=== PATIENT | male | born 1950 | race Caucasian/White ===

== ENCOUNTER 2018-11-29 14:01 | Outpatient (CLI) | payer OTHER ==
[2018-11-29 15:08] LABS: BASOPHILS # (AUTO) 0.04 x10^3/uL (0-0.1); BASOPHILS % (AUTO) 0 % (0-1); EOSINOPHILS # (AUTO) 0.14 x10^3/uL (0-0.4); EOSINOPHILS % (AUTO) 1 % (1-7); LYMPHOCYTES # (AUTO) 2.02 x10^3/uL (1-3.4); LYMPHOCYTES % (AUTO) 21 % (22-44); MD NO; MEAN CORPUSCULAR HEMOGLOBIN 28.9 pg (27.5-34.5); MEAN CORPUSCULAR HGB CONC 32.9 g/dL (33.2-36.2); MEAN CORPUSCULAR VOLUME 87.9 fL (81-97); MEAN PLATELET VOLUME 7.7 fL (7.4-10.4); MONOCYTES # (AUTO) 0.63 x10^3/uL (0.2-0.8); MONOCYTES % (AUTO) 6 % (2-9); NEUTROPHILS # (AUTO) 7.01 x10^3/uL (1.8-6.8); NEUTROPHILS % (AUTO) 71 % (42-75); PLATELET COUNT 302 x10^3/uL (130-400); RED BLOOD COUNT 5.07 x10^6/uL (4.38-5.82); RED CELL DISTRIBUTION WIDTH 14.3 % (9.4-14.8)
[2018-11-29 15:14] LABS: MICROSCOPIC NOT IND
[2018-11-29 15:20] LABS: ALANINE AMINOTRANSFERASE 30 U/L (12-78); ALBUMIN 3.7 g/dL (3.4-5.0); ANION GAP 4 mmol/L (5-15); CALCIUM 8.6 mg/dL (8.5-10.1); CHLORIDE 109 mmol/L (98-107); CREATININE 1.06 mg/dL (0.7-1.3)
[2018-11-29 15:22] LABS: ALKALINE PHOSPHATASE 44 U/L (45-117); BILIRUBIN,TOTAL 0.2 mg/dL (0.2-1.0); TOTAL PROTEIN 7.2 g/dL (6.4-8.2)
[2018-12-02] MEDS ORDERED: ASPI-496 PO (09:02)
[2018-12-02] MEDS ORDERED: Cholesterol PO (09:02)
[2018-12-02] MEDS ORDERED: [UNRECOGNIZED DRUG - OTHER] (09:02)
[2018-12-02] MEDS ORDERED: LOPE2CAP94 PO (09:02)
[2018-12-02] MEDS ORDERED: PROSTATE MED PO (09:02)
== END 2018-11-29 23:59 | disposition home or self-care (01) ==
LOC: STAR 14:01
PROVIDERS: ATTEND Urology
DX: Z01.818 Encounter for other preprocedural examination (principal); D41.02 Neoplasm of uncertain behavior of left kidney
CPT/HCPCS: 36415; 80053; 81003; 85025; 87086; 93005

== ENCOUNTER 2018-12-06 11:09 | Inpatient (IN) | payer OTHER ==
[~2018-12-06] VITALS: Ht 180.3 cm; Wt 86.2 kg
[~2018-12-06 11:09] MED LIST: ASPI-496 PO; Cholesterol PO; LOPE2CAP94 PO; PROSTATE MED PO; [UNRECOGNIZED DRUG - OTHER]
[2018-12-06 12:19] VITALS: BP 165/89
[2018-12-06] MEDS ORDERED: LACTATED RINGERS 1,000 ML IV SCH (12:22)
[2018-12-06] MEDS ORDERED: FINA5TAB4 PO (12:26)
[2018-12-06] MEDS ORDERED: CYAN1TAB29 PO (12:26)
[2018-12-06] MEDS ORDERED: ATOR10TA9 PO (12:26)
[2018-12-06] MEDS ORDERED: ALEN35TA6 PO (12:26)
[2018-12-06] MEDS ORDERED: OMEP-110 PO (12:26)
[2018-12-06] MEDS ORDERED: BUPIVACAINE/PF 0.25% ONE (13:01)
[2018-12-06] MEDS ORDERED: THROMBIN 5,000 UNIT VIAL TP ONE (13:01)
[2018-12-06] MEDS ORDERED: FUROSEMIDE 20 MG/2 ML ONE (13:01)
[2018-12-06] MEDS ORDERED: EPINEPHRINE 1 MG/ML, 1ML ONE (13:02)
[2018-12-06] MEDS ORDERED: MANNITOL PMX 20% 0 ML ONE (13:02)
[2018-12-06] MEDS ORDERED: MANNITOL PMX 20% 500 ML ONE (13:10)
[2018-12-06] MEDS ORDERED: FENTANYL PF 250 MCG/5ML ONE ×2 (13:11→14:16)
[2018-12-06] MEDS ORDERED: FENTANYL PF 100 MCG/2ML IV PRN (14:30)
[2018-12-06] MEDS ORDERED: OXYcodone 5 MG/5 ML ORAL.SOL UDC PO PRN (14:30)
[2018-12-06] MEDS ORDERED: HYDROmorphone 2 MG/ML, 1ML IVPush PRN (14:30)
[2018-12-06] MEDS ORDERED: PROMETHAZINE 25 MG SUPP PR PRN (14:30)
[2018-12-06] MEDS ORDERED: PROMETHAZINE 25 MG/ML, 1ML IV PRN (14:30)
[2018-12-06] MEDS ORDERED: ACETAMINOPHEN 325 MG TABLET PO PRN (14:30)
[2018-12-06] MEDS ORDERED: ONDANSETRON ODT 8 MG PO PRN (14:30)
[2018-12-06] MEDS ORDERED: ONDANSETRON 2MG/ML, 2ML IV PRN (14:30)
[2018-12-06] MEDS ORDERED: LABETALOL 5MG/ML, 20ML IV PRN (14:30)
[2018-12-06] MEDS ORDERED: hydrALAzine 20 MG/ML, 1ML IV PRN (14:30)
[2018-12-06] MEDS ORDERED: LORazepam 2 MG/ML, 1ML IVPush PRN (14:30)
[2018-12-06] MEDS ORDERED: ROCURONIUM 10MG/ML,5ML ONE (16:14)
[2018-12-06] MEDS ORDERED: ONDANSETRON 2MG/ML, 2ML ONE (16:14)
[2018-12-06] MEDS ORDERED: SUCCINYLCHOLINE 20 MG/ML, 10ML ONE (16:14)
[2018-12-06] MEDS ORDERED: NEOSTIGMINE 1 MG/ML, 10ML ONE (16:14)
[2018-12-06] MEDS ORDERED: PROPOFOL 10 MG/ML, 20ML ONE (16:14)
[2018-12-06] MEDS ORDERED: CEFAZOLIN 1,000 MG ONE (16:14)
[2018-12-06] MEDS ORDERED: GLYCOPYRROLATE 0.2MG/1ML, 5ML ONE (16:14)
[2018-12-06] MEDS ORDERED: DEXAMETHASONE 4 MG/ML, 1ML ONE (16:14)
[2018-12-06] MEDS ORDERED: SUGAMMADEX 200 MG/2 ML IVPush ONE (16:23)
[2018-12-06] MEDS ORDERED: FENTANYL PF 100 MCG/2ML ONE (17:17)
[2018-12-06] MEDS: LABETALOL 5 MG/ML SYRINGE IV PRN ×2 (17:35→17:40)
[2018-12-06 19:13] VITALS: BP 147/77
[2018-12-06] MEDS ORDERED: morphine SULFATE 10 MG/ML, 1ML IV PRN (20:00)
[2018-12-06] MEDS: POTASSIUM CHLORIDE 20 MEQ in SODIUM CHLORIDE 0.45% 1,000 ML IV SCH (20:56)
[2018-12-06] MEDS: ACETAMINOPHEN 500 MG TABLET PO SCH (20:56)
[2018-12-06] MEDS: OXYcodone IR 5MG TABLET PO PRN ×2 (22:35→23:01)
[2018-12-07 00:37] VITALS: BP 126/65
[2018-12-07] MEDS: ACETAMINOPHEN 500 MG TABLET PO SCH ×2 (03:14→08:39)
[2018-12-07 03:59] VITALS: BP 116/62
[2018-12-07 05:08] LABS: ANION GAP 4 mmol/L (5-15); CALCIUM 7.7 mg/dL (8.5-10.1); CHLORIDE 110 mmol/L (98-107)
[2018-12-07 05:11] LABS: CREATININE 1.12 mg/dL (0.7-1.3)
[2018-12-07] MEDS: POTASSIUM CHLORIDE 20 MEQ in SODIUM CHLORIDE 0.45% 1,000 ML IV SCH ×2 (05:35→12:10)
[2018-12-07] MEDS: OXYcodone IR 5MG TABLET PO PRN (05:42)
[2018-12-07 09:03] VITALS: BP 116/55
[2018-12-07] MEDS ORDERED: DOCU-131 PO (13:47)
[2018-12-07] MEDS ORDERED: OXYC5TAB2 PO (13:48)
== END 2018-12-07 14:00 | disposition home or self-care (01) | DRG 658 ==
LOC: OUT 11:09 → 4NOR 18:24 → OUT 18:26 → DCLOUNGE 12-07 13:46
PROVIDERS: ADMIT Urology; ATTEND Urology
PROC: 8E0W4CZ Robotic Assisted Procedure of Trunk Region, Percutaneous Endoscopic Approach (ICD-10-PCS; 2018-12-06)
PROC: 03HY32Z Insertion of Monitoring Device into Upper Artery, Percutaneous Approach (ICD-10-PCS; 2018-12-06)
PROC: 0TB14ZZ Excision of Left Kidney, Percutaneous Endoscopic Approach (ICD-10-PCS; principal; 2018-12-06 13:30)
DX: C64.2 Malignant neoplasm of left kidney, except renal pelvis (principal); E78.00 Pure hypercholesterolemia, unspecified; Z90.49 Acquired absence of other specified parts of digestive tract
CPT/HCPCS: 36415; 80048; 85014; 85018; 86850; 86900; 88307; C1729; G0378; J0171; J0690; J1100; J2405; J2704; J2710; J3010; J3480; J3490; C1760; J0330; J1940; J7120